=== PATIENT | male | born 1975 ===

== ENCOUNTER 2019-02-06 15:48 | Observation (INO) | payer BC ==
[~2019-02-06] VITALS: Ht 182.9 cm; Wt 90.9 kg
[2019-02-06 16:36] LABS: BASOPHILS ABSOLUTE AUTO 0.03 K/mm3 (0.00-0.23); BASOPHILS PERCENT AUTO 0 % (0-2); EOSINOPHILS ABSOLUTE AUTO 0.15 K/mm3 (0.00-0.68); EOSINOPHILS PERCENT AUTO 2 % (0-6); Hemoglobin 14.7 g/dL (13.5-17.5); IMMATURE GRAN ABSOLUTE AUTO 0.05 K/mm3 (0.00-0.10); IMMATURE GRAN PERCENT AUTO 1 % (0-1); LYMPHOCYTES PERCENT AUTO 18 % (21-46); MONOCYTES ABSOLUTE AUTO 0.94 K/mm3 (0.16-1.47); MONOCYTES PERCENT AUTO 9 % (4-13); Mean Corpuscular HGB 30.5 pg (26.0-34.0); Mean Corpuscular Volume 87 fL (80-100); Mean Platelet Volume 11.4 fL (9.1-12.4); NEUTROPHILS ABSOLUTE AUTO 7.26 K/mm3 (1.96-9.15); NEUTROPHILS PERCENT AUTO 71 % (41-73); Platelet Count 201 K/mm3 (150-400); RDW Coefficient Variation 11.8 % (11.7-14.2); RDW Standard Deviation 37.6 fL (35.1-46.3); Red Blood Cell Count 4.82 M/mm3 (4.30-5.90); White Blood Cell Count 10.23 K/mm3 (4.00-11.30)
[2019-02-06 16:55] LABS: C-REACTIVE PROTEIN, EXT RANGE 7.79 mg/dL (0.000-0.300)
[2019-02-06 16:57] LABS: Creatinine, Blood 0.91 mg/dL (0.60-1.20)
[2019-02-06] MEDS ORDERED: OMEPRAZOLE20 MG PO (18:32)
--- NOTE | 2019-02-06 18:40 | NUR ---
Pt arrived ambulatory. Alert and oriented x3. Reddness to Right Upper extremety, marked with pen. 18g IV inserted to Left AC. Complaints of mild pain reported by patient. Patient medicated, refer to EMAR. IV antibiotics infusing. Patient resting comfortably. Call light within reach. Continuing to monitor.
--- NOTE | 2019-02-06 19:00 | NUR ---
recvd report from previous shift melvin Juárez, pt sitting up in bed, a/0 x 4, pleasant/cooperative, vss, call light within reach, family/friends in room. pt denies pain at this time
--- NOTE | 2019-02-07 04:13 | NUR ---
shift summary: vss, no acute changes, pt remained a/0 x 4, pleasant/cooperative. pt independent in room, voids x 2 this shift, no n/v, tolerated PO intake prior to 0000, npo following 0000 in anticipation of I&D today. pt received IV antibiotcis zosyn and vanco x 2 this shift. pt rates pain at 3-4/10 prior to analgesia, 2/10 following analgesia per aug for r elbow cellulitis.
--- NOTE | 2019-02-07 06:18 | NUR ---
SHIFT SUMMARY RECEIVED HAND OFF FROM Maryanne BYRD RN USING SBAR AT 0500HRS. LYING ON LEFT SIDE WITH EYES CLOSED. ORIENTED TO NEW NURSE, VOICES UNDERSTANDING. DENIES NEEDS OR WANTS AT THIS TIME. SAFETY MEASURES IN PLACE. WILL GIVE HAND OFF TO ONCOMING SHIFT USING SBAR.
--- NOTE | 2019-02-07 16:30 | NUR ---
SHIFT SUMMARY PT WAS SEEN BY DR THIS MORNING. PT HAS REPORTED PAIN OF 1-2 THROUGHOUT THE DAY. MARSHALL WRAP IS ON R ELBOW. PT WAS NPO THIS MORNING FOR PROCEDURE, BUT HAS BEEN EATING AND DRINKING AND TOLERATING FOOD WELL AFTER BEING SEEN BY PER ORDER. PT REPORTS VOIDING USUAL. FAMILY HAS BEEN IN TO SEE PT TODAY.
[2019-02-07 20:10] LABS: Vancomycin, Trough 18.9 ug/mL (5.0-10.0)
[2019-02-08] MEDS ORDERED: COLCHICINE0.6 MG PO (15:20)
--- NOTE | 2019-02-08 16:26 | NUR ---
DISCHARGE DISCHARGE EDUCATION GIVEN TO PT BY RN. PT VERBALIZED UNDERSTANDING. RX SCRIPT FAXED TO [facility] PER PT REQUEST. PRINTED INSTRUCTIONS GIVEN TO PT. IV DC'D WNL. PERSONAL BELONGINGS SENT HOME WITH PT. PT REPORTS NO FURTHER QUESTIONS. PT IS EATING, DRINKING, AND VOIDING USUAL.
== END 2019-02-08 16:24 | disposition home or self-care (01) ==
LOC: SURS 15:48
PROVIDERS: ADMIT Orthopaedic Surgery
DX: M70.21 Olecranon bursitis, right elbow (principal); M10.9 Gout, unspecified
CPT/HCPCS: 36415; 80202; 82565; 85025; 85651; 86140; 96365; 96366; 96367; 96375; 96376; G0378; J1885; J2543; J3370; J7050

== ENCOUNTER → 2019-02-06 | Outpatient (CLI) | payer BC ==
[~2019-02-06] MED LIST: COLCHICINE0.6 MG PO; OMEPRAZOLE20 MG PO
[2019-02-06 15:24] LABS: Body Fluid Crystals POS (NEGATIVE)
== END | disposition home or self-care (01) ==
LOC: LAB SHORT 14:46 → LAB 14:46
PROVIDERS: Orthopaedic Surgery
DX: M25.521 Pain in right elbow (principal)
CPT/HCPCS: 87070; 87075; 87205; 89060

== ENCOUNTER 2020-04-11 08:02 | Day surgery (SDC) | payer BC ==
--- NOTE | 2020-04-11 08:30 | NUR ---
Patient confirms NPO status and agrees with scheduled surgery. Reports took GERD medication only this am with water. Pt denies chest pain or other discomfort.
--- NOTE | 2020-04-11 08:56 | NUR ---
CT COMPLETE. NO MEDICATIONS NEEDED. PT DENIES C/O AND IS TOLERATING WATER WELL. IV DC'D INTACT.
== END 2020-04-11 09:05 | disposition home or self-care (01) ==
LOC: CT 08:02 → ORD 08:02 → CT 09:00 → ORD 09:05
DX: R07.89 Other chest pain (principal); K21.9 Gastro-esophageal reflux disease without esophagitis; Z79.899 Other long term (current) drug therapy
CPT/HCPCS: 75574; Q9967

== ENCOUNTER 2022-09-15 09:57 | Day surgery (SDC) | payer OTHER ==
[~2022-09-15] VITALS: Ht 182.9 cm; Wt 89.4 kg
[2022-09-15 12:00] VITALS: BP 128/90
== END 2022-09-15 12:17 | disposition home or self-care (01) ==
LOC: ORSCSDS 09:57
PROVIDERS: Internal Medicine Gastroenterology
PROC: 0DJD8ZZ Inspection of Lower Intestinal Tract, Via Natural or Artificial Opening Endoscopic (ICD-10-PCS; principal; 2022-09-15 11:15)
DX: Z12.11 Encounter for screening for malignant neoplasm of colon (principal); K90.0 Celiac disease; Z79.899 Other long term (current) drug therapy
CPT/HCPCS: J2704; J7120